=== PATIENT | male | born 1985 | race Caucasian/White ===

== ENCOUNTER 2019-09-17 20:47 | Inpatient (IN) ==
[2019-09-17] MEDS ORDERED: MoRPHine SULFATE 4 MG/ML 1 ML CARP\\VIAL IV STA (21:05)
[2019-09-17] MEDS ORDERED: ONDANSETRON INJ 2 MG/ML 2 ML VIAL IV STA (21:05)
[2019-09-17] MEDS ORDERED: SODIUM CHLORIDE 0.9% 1000ML 1,000 ML IV SCH (21:15)
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
[2019-09-17 21:44] LABS: Hemoglobin 12.7 g/dL (14.0-18.0); Mean Corpuscular Hemoglobin 28.9 pg (25-34); Mean Corpuscular Hgb Conc 33.4 g/dL (32-36); Mean Corpuscular Volume 86.4 fL (80-100); RDW Coefficient of Variation 16.3 % (11.5-14.5); RDW Standard Deviation 51.8 fL (36.4-46.3); White Blood Count 6.18 K/uL (4.8-10.8)
[2019-09-17 21:54] LABS: Albumin Level 4.3 gm/dl (3.4-5.0); BUN Creatinine Ratio 8.7 (10-20); Calcium 9.3 mg/dl (8.5-10.1); Creatinine Clr Calc Pharmacy 103.6 ml/min; Est GFR (African American) 105.3; Est GFR (Non-African American) 90.9; Potassium 3.9 mmol/L (3.5-5.1)
[2019-09-17 21:58] LABS: Albumin Globulin Ratio 1.1 (0.9-2); Bilirubin,Total 1.6 mg/dl (0.2-1); Globulin 4.1 gm/dl (2.5-4.0); Total Protein 8.4 gm/dl (6.4-8.2)
[2019-09-17 22:06] LABS: Basophils # (auto) 0.01 K/uL (0-0.2); Basophils % (auto) 0.2 %; Eosinophils # (auto) 0.02 K/uL (0-0.5); Eosinophils % (auto) 0.3 %; Immature Granulocytes # (auto) 0.01 K/uL (0.00-0.02); Immature Granulocytes % (auto) 0.2 %; Lymphocytes # (auto) 0.56 K/uL (1.2-3.4); Lymphocytes % (auto) 9.1 %; Mean Platelet Volume 10.4 fL (7.4-10.4); Monocytes # (auto) 0.37 K/uL (0.11-0.59); Neutrophils # (auto) 5.21 K/uL (1.4-6.5); Neutrophils % (auto) 84.2 %; Platelet Count 86 K/uL (130-400); Platelet Estimate Decreased (Normal)
[2019-09-17 22:21] LABS: Appearance Urine Clear (Clear); Bacteria Urine Automated Negative (Negative); Blood Urine Negative (Negative); Color Urine Orange; Epithelial Cell Urine Auto 20-30 /lpf (0-5); Glucose Urine UA Negative (Negative); Leukocyte Esterase Urine Trace (Negative); Nitrite Urine Positive (Negative); RBC Urine Automated 0-4 /hpf (0-4); Urobilinogen Urine Negative (Negative); pH Urine 7.5 (4.5-7.5)
--- NOTE | 2019-09-17 22:22 | CT Scan Report ---
ABDOMEN AND PELVIS CT WITHOUT CONTRAST CT DOSE: 347.90 mGy.cm HISTORY: right flank pain TECHNIQUE: Multiaxial CT images of the abdomen and pelvis were performed without contrast. A dose lo wering technique was utilized adhering to the principles of ALARA. COMPARISON STUDY: None. FINDINGS: A few bibasilar linear densities consistent with subsegmental atelectasis. No pneumoperiton eum. No pneumatosis. No fractures within the visualized osseous structures. Hepatic steatosis. The un enhanced gallbladder, spleen, left adrenal gland, and pancreas are unremarkable. Mild bilateral perin ephric edema. No renal or ureteral stones. No hydronephrosis. Bladder wall thickening may be due to u nderdistention. No retroperitoneal lymphadenopathy. Normal caliber abdominal aorta. Suboptimal evalua tion for bowel pathology due to the lack of intravenous and oral contrast. However, there is no defin ite bowel wall thickening or obstruction. Normal appendix. A 9 mm right adrenal gland nodule. IMPRESSION: 1. Normal appendix. 2. No definite bowel wall thickening or obstruction. 3. No renal or ureteral stones. No hydronephrosis. 4. Mild bilateral perinephric edema/fat stranding. This could be due to an underlying renal abnormali ty or less likely a pyelonephritis. Recommend correlation with renal function studies and urinalysis. 5. Bladder wall thickening is likely due to underdistention. Recommend correlation with urinalysis to exclude the possibility of a cystitis. 6. Hepatic steatosis. 7. An indeterminate 9 mm right adrenal gland nodule. Electronically signed by: Thomas Huntley M.D. 09/17/2019 10:20 PM
[2019-09-17 22:25] LABS: Bilirubin Urine 1+ (Negative); Ictotest Urine Positive (Negative); Ketones Urine 3+ (Negative); Protein Urine 2+ (Negative); Sulfosalicylic Acid Urine Positive (Negative)
[2019-09-17] MEDS ORDERED: cefTRIAXone SODIUM 1,000 MG/50 ML BAG IV STA (22:27)
[2019-09-17] MEDS ORDERED: PROMETHAZINE 6.25 MG/50.25 ML BAG IV STA (22:45)
[2019-09-17] MEDS ORDERED: MoRPHine SULFATE 4 MG/ML 1 ML CARP\\VIAL IV PRN (23:25)
[2019-09-18] MEDS ORDERED: HYDROmorphone INJ 0.5 MG/0.5 ML SYR IV PRN (00:05)
[2019-09-18] MEDS ORDERED: ONDANSETRON INJ 2 MG/ML 2 ML VIAL IV PRN (00:05)
[2019-09-18] MEDS ORDERED: ACETAMINOPHEN 325 MG TAB PO PRN (00:05)
[2019-09-18] MEDS ORDERED: KETOROLAC TROMETHAMINE 15 MG/ML VIAL IV PRN (00:05)
[2019-09-18] MEDS ORDERED: FAMOTIDINE 20MG/5ML IV PUSH IV ONE (00:36)
[2019-09-18] MEDS: FAMOTIDINE 20 MG in SYRINGE 3 ML IV SCH ×3 (00:37→22:14)
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
[2019-09-18] MEDS: D5W AND 1/2NSS 1,000 ML IV SCH ×4 (01:10→21:23)
[2019-09-18 05:06] LABS: Hematocrit (blood only) 33.6 % (42-52); Hemoglobin 11.2 g/dL (14.0-18.0); Mean Corpuscular Hemoglobin 29.2 pg (25-34); Mean Corpuscular Hgb Conc 33.3 g/dL (32-36); Mean Corpuscular Volume 87.7 fL (80-100); RDW Coefficient of Variation 16.3 % (11.5-14.5); RDW Standard Deviation 52.6 fL (36.4-46.3); Red Blood Count 3.83 M/uL (4.7-6.1); White Blood Count 4.97 K/uL (4.8-10.8)
[2019-09-18 05:11] LABS: Mean Platelet Volume 9.8 fL (7.4-10.4); Platelet Count 70 K/uL (130-400)
[2019-09-18 05:44] LABS: Albumin Level 3.7 gm/dl (3.4-5.0); Bilirubin Direct 0.4 mg/dl (0-0.2); Calcium 8.6 mg/dl (8.5-10.1); Creatinine Clr Calc Pharmacy 103.6 ml/min; Est GFR (African American) 105.3; Est GFR (Non-African American) 90.9; Potassium 3.6 mmol/L (3.5-5.1)
[2019-09-18 05:46] LABS: Bilirubin,Total 1.4 mg/dl (0.2-1); Globulin 3.7 gm/dl (2.5-4.0); Total Protein 7.4 gm/dl (6.4-8.2)
[2019-09-18] MEDS: KETOROLAC 30 MG/ML VIAL IV PRN ×2 (08:58→14:59)
--- NOTE | 2019-09-18 18:06 | Hospitalist Progress Note ---
Date of Service September 18, 2019 Assessment & Plan (1) Pyelonephritis: Right side Failed outpatient treatment with Cipro Continue IV Rocephin 1 gram Q24 await culture results pain control for right flank pain Antipyretics with Tylenol and/or Toradol (2) Vomiting: advance diet as tolerated Zofran IV Pepcid IV (3) Thrombocytopenia: 70,00 today - likely secondary to pyelonephritis but hepatic steatosis s econdary to alcohol abuse may also be contributing Continue to trend (4) Hepatic steatosis: Patient admits to drinking about 4 beers daily Discussed ramifications of continued alcohol abuse and cessation strategies to which patient was open. Will need to follow with his pcp (5) Adrenal nodule: Seen incidentally on CT follow with pcp (6) Elevated bilirubin: with RUQ pain Nothing acute with gallbladder on CT, will check with gallbladder US (7) DVT prophylaxis: no chemoprophylaxis due to decreased platelets, SCDs Subjective Mr. Witt continues to have pain in his right flank as well as RUQ. He is no longer vomiting ROS Constitutional: no chills, aches, sweats or fever Respiratory: no sob,cough, sputum, or wheezing Cardiac: no chest pain, palpitations, edema, orthopnea or lightheadedness GI: no abdominal pain, nausea, vomiting, diarrhea or constipation : no dysuria or hesitancy Extremities: no joint pain or weakness Skin: no rash All other systems reviewed and negative Physical Exam Physical Exam: General: no distress Eyes: normal inspection, PERLL Respiratory: chest non tender, clear to auscultation, normal breath sounds, no respiratory distress, no accessory muscle use Cardiac: regular rate and rhythm, no rub or gallop, no murmur, no edema, no jvd GI/: active bowel sounds, RUQ tender to palpation soft, non distended Extremities: normal range of motion, normal strength, non tender Neuro/Psych: alert and oriented x 3, normal mood and affect Skin: normal color, dry Results & Data Vital Signs (Past 12 Hours) Vital Signs Temp Pulse Pulse Resp BP Pulse Ox 09/18/19 15:26 37.0 C 60 16 147/76 H 97 09/18/19 11:40 160/70 H 09/18/19 08:02 36.9 C 70 14 160/70 H 96 PG Care Time/CCT Total # of Minutes Spent Total Time Spent with Patient: Total time spent is greater than 50% in coordination of care (as documented) at patient's floor/unit and/or counseling patient: (1) Vomiting Nausea presence: with nausea Vomiting Intractability: intractable Vomiting type: unspecified Qualified Code(s): R11.2 - Nausea with vomiting, unspecified
[2019-09-18] MEDS: HYDROmorphone INJ 1 MG/ML SYRINGE IV PRN (18:50)
[2019-09-18] MEDS: cefTRIAXone SODIUM 1,000 MG in DEXTROSE 5% 50 ML IV SCH (21:30)
--- NOTE | 2019-09-18 22:12 | Ultrasound Report ---
BILIARY ULTRASOUND CLINICAL HISTORY: Right upper quadrant pain and elevated bilirubin. COMPARISON STUDY: Noncontrast CT scan dated 09/17/2019 FINDINGS: The pancreas appears normal as visualized. Liver is of increased echogenicity, nonspecific finding most often seen in hepatic steatosis. There are multiple gallstones. There is no gallbladder wall thickening. There is no ductal dilatation . The common bile duct measures 2 mm. The technologist reports a negative sonographic Le sign. There is no evidence of right-sided hydronephrosis IMPRESSION: 1. Cholelithiasis. No evidence of ductal dilatation 2. Nonspecific increased hepatic echogenicity, consistent with the patient's previously described hep atic steatosis Electronically signed by: Norberto Baez M.D. 09/18/2019 10:11 PM
[2019-09-19] MEDS: HYDROmorphone INJ 1 MG/ML SYRINGE IV PRN (00:33)
[2019-09-19] MEDS: D5W AND 1/2NSS 1,000 ML IV SCH (04:41)
[2019-09-19 06:23] LABS: Hematocrit (blood only) 31.3 % (42-52); Hemoglobin 10.4 g/dL (14.0-18.0); Mean Corpuscular Hemoglobin 28.9 pg (25-34); Mean Corpuscular Hgb Conc 33.2 g/dL (32-36); Mean Corpuscular Volume 86.9 fL (80-100); RDW Coefficient of Variation 15.7 % (11.5-14.5); RDW Standard Deviation 50.1 fL (36.4-46.3); White Blood Count 3.73 K/uL (4.8-10.8)
[2019-09-19 06:26] LABS: Mean Platelet Volume 10.1 fL (7.4-10.4); Platelet Count 63 K/uL (130-400)
[2019-09-19 06:43] LABS: Albumin Level 3.5 gm/dl (3.4-5.0); BUN Creatinine Ratio 5.4 (10-20); Bilirubin Direct 0.3 mg/dl (0-0.2); Calcium 8.7 mg/dl (8.5-10.1); Creatinine Clr Calc Pharmacy 123.6 ml/min; Est GFR (African American) 128.1; Est GFR (Non-African American) 110.5; Potassium 3.4 mmol/L (3.5-5.1)
[2019-09-19 06:57] LABS: Albumin Globulin Ratio 1.1 (0.9-2); Bilirubin,Total 0.7 mg/dl (0.2-1); Globulin 3.1 gm/dl (2.5-4.0); Total Protein 6.6 gm/dl (6.4-8.2)
[2019-09-19] MEDS ORDERED: POTASSIUM CHLORIDE 20 MEQ TABCR PO STA (08:11)
[2019-09-19] MEDS ORDERED: HYDROCODONE/ACETAMOPHEN 5/325MG TAB PO PRN ×2 (08:16→21:56)
[2019-09-19] MEDS: FAMOTIDINE 20 MG in SYRINGE 3 ML IV SCH ×2 (08:31→20:31)
[2019-09-19 09:18] LABS: Estimated Average Glucose 97 mg/dl
--- NOTE | 2019-09-19 10:48 | Ultrasound Report ---
RENAL ULTRASOUND HISTORY: Flank pain. COMPARISON: Abdomen and pelvis CT 09/17/2019. FINDINGS: Right kidney: 10.8 cm. No hydronephrosis. Normal corticomedullary differentiation and cortical thickn ess. Left kidney: 11.1 cm. No hydronephrosis. Normal corticomedullary differentiation and cortical thickne ss. Bladder: Not well-distended. No definite bladder wall thickening. The ureteral jets are not identifie d. Spleen: Normal in size and echotexture. This measures 11 cm in length. IMPRESSION: 1. No hydronephrosis. 2. Normal spleen. Electronically signed by: Thomas Huntley M.D. 09/19/2019 10:46 AM
[2019-09-19 16:03] LABS: Appearance Urine Clear (Clear); Bilirubin Urine Negative (Negative); Blood Urine Negative (Negative); Color Urine Yellow; Glucose Urine UA Negative (Negative); Ketones Urine Negative (Negative); Leukocyte Esterase Urine Negative (Negative); Nitrite Urine Negative (Negative); Protein Urine Negative (Negative); Specific Gravity Urine 1.009 (1.000-1.030); Urobilinogen Urine Negative (Negative); pH Urine 7.5 (4.5-7.5)
[2019-09-19] MEDS ORDERED: LORazepam 0.5 MG TAB PO PRN (16:24)
--- NOTE | 2019-09-19 16:24 | Hospitalist Progress Note ---
Date of Service September 19, 2019 Assessment & Plan (1) Pyelonephritis: Right side Failed outpatient treatment with Cipro Continue IV Rocephin 1 gram Q24 cultures did not appear to be collected on admission so will recollect to check for resolution of infection pain control for right flank pain Antipyretics with Tylenol and/or Toradol (2) Vomiting: advance diet as tolerated - nausea is much improved Zofran IV Pepcid IV (3) Thrombocytopenia: with pancytopenia Platelets continue to trend down 63,000 today - unclear why platelets are continuing to decrease. They were low on admission so I don't believe this is medication induced. It could be secondary to the infection however he did not present with a septic picture or severe infection. US of kidneys and spleen today were unremarkeable No s/s of bleeding (4) Hepatic steatosis: Patient admits to drinking about 4 beers daily Discussed ramifications of continued alcohol abuse and cessation strategies to which patient was open. Will need to follow with his pcp [facility] (5) Adrenal nodule: Seen incidentally on CT follow with pcp (6) Elevated bilirubin: with RUQ pain - no further ruq pain Nothing acute with gallbladder on CT, gallbladder US with cholelithiasis but no cbd dilatation or evidence of cholecystitis (7) DVT prophylaxis: no chemoprophylaxis due to decreased platelets, SCDs Subjective Mr. Witt is feeling better today, pain is improving, switched to po pain medications. No further nausea. ROS Constitutional: no chills, aches, sweats or fever Respiratory: no sob,cough, sputum, or wheezing Cardiac: no chest pain, palpitations, edema, orthopnea or lightheadedness GI: as above : no dysuria or hesitancy Extremities: no joint pain or weakness Skin: no rash All other systems reviewed and negative Physical Exam Physical Exam: General: no distress Eyes: normal inspection, PERLL Respiratory: chest non tender, clear to auscultation, normal breath sounds, no respiratory distress, no accessory muscle use Cardiac: regular rate and rhythm, no rub or gallop, no murmur, no edema, no jvd GI/: active bowel sounds, no abd pain or tenderness, soft, non distended Extremities: normal range of motion, normal strength, non tender Neuro/Psych: alert and oriented x 3, normal mood and affect Skin: normal color, dry Results & Data Vital Signs (Past 12 Hours) Vital Signs Temp Pulse Resp BP BP Pulse Ox 09/19/19 15:11 36.7 C 78 20 181/105 H 100 09/19/19 07:06 36.9 C 58 L 16 130/78 97 PG Care Time/CCT Total # of Minutes Spent Total Time Spent with Patient: Total time spent is greater than 50% in coordination of care (as documented) at patient's floor/unit and/or counseling patient: (1) Vomiting Nausea presence: with nausea Vomiting Intractability: intractable Vomiting type: unspecified Qualified Code(s): R11.2 - Nausea with vomiting, unspecified
[2019-09-19] MEDS: cefTRIAXone SODIUM 1,000 MG in DEXTROSE 5% 50 ML IV SCH (22:22)
[2019-09-20 08:58] LABS: Hematocrit (blood only) 33.3 % (42-52); Hemoglobin 11.2 g/dL (14.0-18.0); Mean Corpuscular Hemoglobin 28.9 pg (25-34); Mean Corpuscular Hgb Conc 33.6 g/dL (32-36); RDW Coefficient of Variation 15.9 % (11.5-14.5); RDW Standard Deviation 49.4 fL (36.4-46.3); Red Blood Count 3.87 M/uL (4.7-6.1); White Blood Count 3.92 K/uL (4.8-10.8)
[2019-09-20] MEDS ORDERED: PANTOprazole 40 MG TAB PO SCH (09:00)
[2019-09-20 09:04] LABS: Mean Platelet Volume 10.8 fL (7.4-10.4); Platelet Count 72 K/uL (130-400)
[2019-09-20 09:22] LABS: Albumin Level 3.8 gm/dl (3.4-5.0); BUN Creatinine Ratio 5.4 (10-20); Calcium 9.4 mg/dl (8.5-10.1); Creatinine Clr Calc Pharmacy 122.2 ml/min; Est GFR (African American) 127.5; Potassium 3.3 mmol/L (3.5-5.1)
[2019-09-20 09:25] LABS: Albumin Globulin Ratio 1.1 (0.9-2); Bilirubin,Total 0.8 mg/dl (0.2-1); Globulin 3.6 gm/dl (2.5-4.0); Total Protein 7.4 gm/dl (6.4-8.2)
[2019-09-20 09:30] LABS: Basophils # (auto) 0.01 K/uL (0-0.2); Basophils % (auto) 0.3 %; Eosinophils # (auto) 0.13 K/uL (0-0.5); Eosinophils % (auto) 3.3 %; Immature Granulocytes # (auto) 0.03 K/uL (0.00-0.02); Immature Granulocytes % (auto) 0.8 %; Lymphocytes % (auto) 25.5 %; Monocytes # (auto) 0.34 K/uL (0.11-0.59); Monocytes % (auto) 8.7 %; Neutrophils # (auto) 2.41 K/uL (1.4-6.5); Neutrophils % (auto) 61.4 %
[2019-09-20] MEDS ORDERED: POTASSIUM CHLORIDE 20 MEQ TABCR PO STA (10:01)
--- NOTE | 2019-09-20 10:43 | Discharge Summary ---
Date of Service September 20, 2019 Admission HPI Per Admitting Provider 34 y/o male with a 4 day history of fever (Tmax 101) right flank pain, N/V was diagnosed with UTI in the ED on 09/17/19 (treated with Cipro). The patient returned due to intractable vomiting,not being able to keep Cipro in system. In addition, the flank pain worsened. He denies chest pain, shortness of breath, hematuria, and pain or swelling in legs. Primary Care Provider: NO PCP Principal Diagnosis Pyelonephritis Discharge Exam Constitutional WD/WN, vitals as above Respiratory normal respiratory effort, lungs clear to auscultation Cardiovascular RRR, no murmur, no edema Gastrointestinal (Abdomen) Inspection/Auscultation: abdomen normal to inspection and normal bowel sounds; abdomen not distended Percussion/Palpation: abdomen soft; abdomen nontender Musculoskeletal no cyanosis or clubbing, extremities motor strength 5/5 Skin no rashes, warm and dry Neurologic moves all extremities and awake Psychiatric A+Ox3, euthymic affect Discharge Data Allergies Allergy/AdvReac Type Severity Reaction Status Date / Time No Known Allergies Allergy Verified 09/17/19 21:14 Consultations 09/17/19 23:33 ED Decision to Admit Stat Ordered Studies 09/17/19 21:05 CT abd pelvis wo con Stat 09/18/19 15:55 US gallbladder Routine 09/19/19 09:26 US renal/blad retro comp Routine Hospital Course (1) Pyelonephritis: Right side Failed outpatient treatment with Cipro Continue IV Rocephin 1 gram Q24 cultures did not appear to be collected on admission - repeat UA was clean after a number of days of abx pain control for right flank pain Antipyretics with Tylenol and/or Toradol (2) Vomiting: No further nausea (3) Thrombocytopenia: with pancytopenia Platelets rebounding today to 72,000 as well as WBCs and hgb - unclear why counts decreased. They were low on admission so I don't believe this is medication induced. Likely secondary to the infection however he did not present with a septic picture or severe infection. US of kidneys and spleen were unremarkeable No s/s of bleeding Will hold off on follow up blood work as he appears to be rebounding - can discuss further follow up with pcp (4) Hepatic steatosis: Patient admits to drinking about 4 beers daily Discussed ramifications of continued alcohol abuse and cessation strategies to which patient was open. Will need to follow with his pcp [facility] (5) Adrenal nodule: Seen incidentally on CT follow with pcp (6) Elevated bilirubin: with RUQ pain - no further ruq pain Nothing acute with gallbladder on CT, gallbladder US with cholelithiasis but no cbd dilatation or evidence of cholecystitis (7) Hypokalemia: replaced Will give patient 1 week of 20 mEq replacement daily while he is eating less than normal (8) DVT prophylaxis: no chemoprophylaxis due to decreased platelets, SCDs Total Time Total Time Spent Total Time Spent (In Minutes): greater than 30 minutes Discharge Plan Discharge Items Patient Disposition: Home - Self-Care Reason For Visit: RIGHT PYELONEPHRITIS Discharge Diagnosis: Kidney infection (pyelonephritis) Activity: Resume your previous activity Activity Comment: gradually as tolerated Non-emergency contact: Primary Care Provider Call non-emergency contact if: you have any medication questions, your symptoms worsen, your pain is not controlled, your pain is worsening and you have a fever Follow-up/Referrals: PCP,NO [Physician] - Diet: Regular Addtl Attending Provider Instructions: 1) Pyelonephritis: You were admitted to the hospital for kidney infection on the right side after failed outpatient treatment with Ciprofloxacin You were given IV Rocephin while inpatient and will continue on cefixime for home for a total of 2 weeks of treatment Please follow up with your primary care provider within about a week. If you have pain you can take up to 3,000 mg of Tylenol per 24 hours (2) Thrombocytopenia (low platelets): with low white blood cells and low hemoglobin, likely due to infection suppressing bone marrow Your blood counts are rebounding today but are not yet normal. Avoid medications like aspirin which inhibit your platelets. Please let your doctor know right away or return to the emergency department if you develop bleeding such as blood in your urine, black, tarry or bloody stools, excessive bruising or petechiae (clusters of little red spots on your skin) Discuss any necessary follow up blood work with your provider at your appointment next week (3) Hepatic steatosis (fatty liver): Discontinue alcohol consumption and discuss with your provider at your next appointment (4) Adrenal nodule: Seen incidentally on CT scan Follow up with your provider, they may want you to have it rescanned in the future to monitor for any change (5) Hypokalemia Your potassium was slightly low over the last two days. Be sure to eat a well rounded diet. I will send a week's worth of potassium replacement to your pharmacy to replace until you are eating a normal diet again. Pending Studies at Discharge: No Stand-Alone Forms: [facility], Work/School Release (Inpt), Smoking Cessation Medications and DC Order Prescriptions: New cefixime 400 mg capsule 400 mg PO DAILY Qty: 10 RF: 0 potassium chloride 20 mEq tablet extended release 20 meq PO DAILY Qty: 7 RF: 0 Continued multivitamin Tablet 1 tab PO DAILY RF: 0 Discontinued ciprofloxacin HCl 500 mg tablet 500 mg PO BID Qty: 14 RF: 0 Discharge Orders: Discharge Order (Routine); Ordered 09/20/19 Ordered By: Dana Sprague Admission Data Admit Date/Time: 09/18/19 00:50 Attending Provider: Dawood Montelongo Admit Provider: Deric Peter Primary Care Provider: [facility],Medicine Other Providers: Deric Peter
== END 2019-09-20 12:10 | disposition home or self-care (01) | DRG 690 ==
LOC: ED 20:47 → 3N 09-18 00:45 → SUATTDRO 09-18 00:50 → 3N 09-18 00:50

== ENCOUNTER 2025-06-22 09:28 | Inpatient (IN) ==
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
[2025-06-22] MEDS: SODIUM CHLORIDE 0.9% 1,000 ML IV SCH (09:56)
[2025-06-22] MEDS: LORazepam 1 MG/1 ML SYR ED Inj Use IV STA (09:56)
[2025-06-22] MEDS: diphenhydrAMINE 50 MG/ML VIAL IV STA (09:57)
[2025-06-22 10:02] LABS: Hematocrit (blood only) 43.8 % (42.0-52.0); Hemoglobin 15.5 g/dl (14.0-18.0); Immature Granulocytes # (auto) 0.01 K/uL (0.01-0.20); Immature Granulocytes % (auto) 0.2 %; Mean Corpuscular Hemoglobin 31.4 pg (25.0-34.0); Mean Corpuscular Volume 88.8 fL (80.0-100.0); Platelet Count 108 K/uL (130-400); RDW Standard Deviation 43.3 fL (36.4-46.3); Red Blood Count 4.93 M/uL (4.70-6.10); White Blood Count 4.07 K/ul (4.8-10.8)
[2025-06-22 10:21] LABS: Alanine Aminotransferase 26.0 U/L (7-52); Albumin Globulin Ratio 1.4 (0.9-2); Alkaline Phosphatase 89.0 U/L (34-104); Anion Gap 10.0 (3-11); Bilirubin,Total 0.5 mg/dl (0.2-1.0); Blood Urea Nitrogen 4.0 mg/dl (6-23); Calcium 8.8 mg/dl (8.6-10.3); Carbon Dioxide 33.0 mmol/L (21-32); Chloride 99.0 mmol/L (98-107); Creatine Kinase 295.0 U/L (30-223); Creatinine Clr Calc Pharmacy 118.7 ml/min; Globulin 3.3 gm/dl (2.5-4.0); Glucose 118.0 mg/dl (70-99(Fasting)); Magnesium 2.0 mg/dl (1.7-2.4); Potassium 3.5 mmol/L (3.5-5.1); Sodium 142.0 mmol/L (136-145); Total Protein 8.0 gm/dl (6.0-8.3)
[2025-06-22 10:28] LABS: Base Excess VBG 6.8 mEq/L; HCO3 VBG 34 mmol/L; Oxygen Saturation VBG < 60.0 %; PCO2 VBG 57 mmHg (38-50); PO2 VBG 36 mmHg
[2025-06-22 10:30] LABS: pH VBG 7.39 (7.36-7.41)
--- NOTE | 2025-06-22 10:32 | CT Scan Report ---
CT head/brain wo con CLINICAL HISTORY: altered, poss trauma. TECHNIQUE: Multiple axial CT images of the head were obtained without contrast. A dose lowering tech nique was utilized adhering to the principles of ALARA. COMPARISON: None FINDINGS: There is motion artifact despite multiple acquisitions. No intracranial hemorrhage seen. No mass effect, midline shift, or hydrocephalus. No skull fracture seen. There is mucosal thickening in the maxillary sinuses. There is a mucous retention cyst at the right maxillary sinus. IMPRESSION: No acute findings. ACT 112: Negative or not required by law. The above report was generated using voice recognition software. It may contain grammatical, syntax o r spelling errors. Electronically signed by: Beto Trotter M.D. 06/22/2025 10:31 AM
[2025-06-22 10:33] LABS: INR 1.1 (0.9-1.1); Partial Thromboplastin Time 30 Seconds (21-31); Prothrombin Time 11.4 Seconds (9.0-12.0)
[2025-06-22 10:35] LABS: Thyroid Stimulating Hormone 0.916 uIu/ml (0.300-4.500)
--- NOTE | 2025-06-22 10:39 | CT Scan Report ---
CT SCAN OF THE CERVICAL SPINE CLINICAL HISTORY: Possible fall. Altered mental status. COMPARISON STUDY: None. TECHNIQUE: CT scan of the cervical spine is performed from the skull base to the upper thoracic spine . Images are reviewed in the axial, sagittal, and coronal planes. IV contrast was not administered fo r this examination. A dose lowering technique was utilized adhering to the principles of ALARA. CT DOSE: 2418.7 mGy.cm FINDINGS: There is mild leftward curvature of the cervical spine. This may be positional. No cervical spine fractures are present. There are no osseous lesions. There is mild multilevel disc space narro wing and endplate osteophytosis within the cervical spine. There is moderate multilevel facet arthros is. Craniocervical junction is intact. There is no prevertebral edema. IMPRESSION: No acute cervical spine fracture or subluxation. ACT 112: Negative or not required by law. Electronically signed by: Vishal Tinoco M.D. 06/22/2025 10:37 AM
--- NOTE | 2025-06-22 11:00 | XRay Report ---
XR hand LT min 3V routine CLINICAL HISTORY: att small finger especially COMPARISON: None FINDINGS: Fifth finger is held in flexion on all images. Evaluation of the fingers is limited due to overlap on the lateral view. No acute fracture or dislocation seen. No radiopaque foreign body. No s ignificant degenerative change. There is a small chronic calcification adjacent to the distal lateral aspect of the scaphoid, likely sequela of old injury. IMPRESSION: 1. Mildly limited exam with no acute fracture seen. 2. Suggest clinical correlation for contracture at the fifth finger. ACT 112: Negative or not required by law. Electronically signed by: Beto Trotter M.D. 06/22/2025 10:58 AM
--- NOTE | 2025-06-22 11:01 | XRay Report ---
XR chest 1V portable CLINICAL HISTORY: weakness COMPARISON STUDY: 09/17/2019 FINDINGS: Heart size and pulmonary vasculature are normal. No consolidation or pleural effusion seen. No pneumothorax. IMPRESSION: No acute findings. ACT 112: Negative or not required by law. Electronically signed by: Beto Trotter M.D. 06/22/2025 10:59 AM
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
[2025-06-22] MEDS: FOLIC ACID 1 MG in SYRINGE 9.8 ML IV STA (11:50)
[2025-06-22] MEDS: THIAMINE HCL 500 MG in SODIUM CHLORIDE 0.9% 50 ML IV STA (11:51)
[2025-06-22 12:24] LABS: Influenza A virus by PCR Negative (Neg); Influenza B virus by PCR Negative (Neg); SARS CoV2 RNA(COVID-19) Ceph NEGATIVE (Negative)
[2025-06-22 12:47] LABS: Base Excess VBG 7.0 mEq/L; HCO3 VBG 35 mmol/L; Oxygen Saturation VBG < 60.0 %; PCO2 VBG 63 mmHg (38-50); PO2 VBG 40 mmHg; pH VBG 7.35 (7.36-7.41)
--- NOTE | 2025-06-22 12:53 | CT Scan Report ---
CT lumbar spine wo con CLINICAL HISTORY: fall, low lumbar pain COMPARISON STUDY: None FINDINGS: There are minimal lumbar spine degenerative changes. No fracture or subluxation seen. No si gnificant center canal or neural foraminal narrowing. Partially visualized urinary bladder is promine ntly distended. IMPRESSION: 1. No lumbar spine fracture seen. 2. Distended urinary bladder. ACT 112: Negative or not required by law. Electronically signed by: Beto Trotter M.D. 06/22/2025 12:51 PM
[2025-06-22] MEDS: FAMOTIDINE 20MG IV PUSH 20 MG/5 ML SYR IV STA (14:13)
[2025-06-22] MEDS ORDERED: LORazepam 1 MG TAB PO PRN (14:33)
[2025-06-22] MEDS ORDERED: ACETAMINOPHEN 325 MG TAB PO PRN (14:33)
[2025-06-22] MEDS: NSS + 20MEQ KCL 20 MEQ/1,000 ML BAG IV SCH (14:37)
[2025-06-22] MEDS: THIAMINE HCL 500 MG in SODIUM CHLORIDE 0.9% 50 ML IV SCH (19:39)
[2025-06-23] MEDS: FAMOTIDINE 20MG IV PUSH 20 MG/5 ML SYR IV SCH (02:26)
[2025-06-23 02:36] LABS: Appearance Urine Clear (Clear); Glucose Urine UA Negative (Negative)
[2025-06-23 03:04] LABS: Amphetamines+Metham, Urine Neg (Neg); MDMA (Ecstacy), Urine Neg (Neg); Marijuana, Urine Neg (Neg)
[2025-06-23] MEDS: ONDANSETRON INJ 2 MG/ML 2 ML VIAL IV PRN (04:59)
--- NOTE | 2025-06-23 05:36 | Electrocardiogram Report ---
Test Reason : Blood Pressure : */* mmHG Vent. Rate : 74 BPM Atrial Rate : 74 BPM P-R Int : 180 ms QRS Dur : 88 ms QT Int : 390 ms P-R-T Axes : 58 -8 35 degrees QTcB Int : 432 ms Normal sinus rhythm Cannot rule out Anterior infarct , age undetermined Abnormal ECG When compared with ECG of 09-Aug-2005 19:25, Questionable change in QRS axis Confirmed by Earnest Chen ([id number]) on 06/23/2025 5:36:03 AM Referred By: Confirmed By: Earnest Chen
[2025-06-23 06:53] LABS: Hematocrit (blood only) 36.6 % (42.0-52.0); Hemoglobin 12.8 g/dl (14.0-18.0); Mean Corpuscular Hemoglobin 32.0 pg (25.0-34.0); Mean Corpuscular Volume 91.5 fL (80.0-100.0); Platelet Count 91 K/uL (130-400); RDW Standard Deviation 45.0 fL (36.4-46.3); Red Blood Count 4.00 M/uL (4.70-6.10); White Blood Count 4.43 K/ul (4.8-10.8)
[2025-06-23 06:58] LABS: Anion Gap 11.0 (3-11); Blood Urea Nitrogen 5.0 mg/dl (6-23); Calcium 7.7 mg/dl (8.6-10.3); Carbon Dioxide 26.0 mmol/L (21-32); Chloride 106.0 mmol/L (98-107); Creatine Kinase 288.0 U/L (30-223); Creatinine Clr Calc Pharmacy 117.4 ml/min; Glucose 93.0 mg/dl (70-99(Fasting)); Potassium 4.2 mmol/L (3.5-5.1); Sodium 143.0 mmol/L (136-145)
[2025-06-23] MEDS: MULTIVITAMIN TAB PO SCH (08:39)
[2025-06-23] MEDS: FOLIC ACID 1 MG in SYRINGE 9.8 ML IV SCH (08:41)
[2025-06-23] MEDS ORDERED: LORazepam 1 MG TAB PO PRN (15:39)
[2025-06-23] MEDS ORDERED: GABAPENTIN 1200MG ALCOHOL WITHDRAWAL LOAD PO STA (15:39)
[2025-06-23] MEDS ORDERED: Ativan PO Alcohol Withdrawal--Active Protocol PO PRN (15:39)
[2025-06-23] MEDS: GABAPENTIN 600 MG TAB PO ONE (16:05)
[2025-06-23] MEDS: LORazepam 1 MG TAB PO PRN (16:05)
[2025-06-23] MEDS: MUPIROCIN 2% OINT 22 GM TUBE EXT SCH (16:05)
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
[2025-06-23] MEDS: GABAPENTIN 600 MG TAB PO SCH (21:11)
[2025-06-23] MEDS: AZELASTINE HCL 0.1% NASAL 200 SPRAYS/27,400 MCG BTL SCH (22:00)
[2025-06-24 06:57] LABS: Hematocrit (blood only) 36.4 % (42.0-52.0); Hemoglobin 12.8 g/dl (14.0-18.0); Mean Corpuscular Hemoglobin 32.2 pg (25.0-34.0); Mean Corpuscular Volume 91.5 fL (80.0-100.0); Platelet Count 79 K/uL (130-400); RDW Standard Deviation 42.5 fL (36.4-46.3); Red Blood Count 3.98 M/uL (4.70-6.10); White Blood Count 3.45 K/ul (4.8-10.8)
[2025-06-24 07:34] LABS: Anion Gap 6.0 (3-11); Blood Urea Nitrogen 4.0 mg/dl (6-23); Calcium 8.7 mg/dl (8.6-10.3); Carbon Dioxide 29.0 mmol/L (21-32); Chloride 103.0 mmol/L (98-107); Creatinine Clr Calc Pharmacy 113.6 ml/min; Glucose 124.0 mg/dl (70-99(Fasting)); Potassium 4.0 mmol/L (3.5-5.1); Sodium 138.0 mmol/L (136-145)
[2025-06-24] MEDS: CYANOCOBALAMIN (B-12) 500 MCG TABLET PO SCH (08:36)
[2025-06-24] MEDS: LORazepam 1 MG TAB PO PRN (08:47)
--- NOTE | 2025-06-24 09:08 | XRay Report ---
XR wrist RT 2V, XR hand RT 2V CLINICAL HISTORY: recent fall, right hand/wrist swelling; r/o Fx COMPARISON: None FINDINGS: No fracture or dislocation seen at the right wrist or right hand. IMPRESSION: No fracture seen. ACT 112: Negative or not required by law. Electronically signed by: Beto Trotter M.D. 06/24/2025 9:07 AM
[2025-06-24] MEDS: GABAPENTIN 600 MG TAB PO SCH (11:29)
--- NOTE | 2025-06-24 19:40 | Hospitalist Progress Note ---
Date of Service June 24, 2025 Assessment & Plan (1) Alcohol withdrawal: (2) Alcohol intoxication: (3) Altered mental status: (4) Alcohol abuse: (5) Snuff user: (6) Hepatic steatosis: (7) Elevated CPK: (8) Elevated LFTs: (9) Thrombocytopenia: (10) History of tracheostomy: (11) Lumbar back pain: (12) Acute head trauma: (13) Multiple abrasions: (14) Pancytopenia: Plan 40yo male with history of alcohol abuse & tobacco use presented with altered mental status & severe alcohol intoxication (etoh level >500) with resulting lactic acidosis. #alcohol intoxication - present on admission; now with etoh withdrawal - -fortunately no DTs at this time -cont gabapentin taper/protocol -ativan prn for withdrawal symptoms per AWSS protocol -cont: -IV thiamine 500mg q8h -IV folic acid 1mg daily -MVI daily -B12 level low-normal - cont B12 1000mcg daily #etoh abuse - -discussed naltrexone, pros & cons, etc. -patient considering such #altered mental status / toxic encephalopathy - resolved - -2nd to etoh intoxication -mental status has returned to baseline -CT head neg for acute process -IV thiamine #tobacco abuse - -daily snuff outside the hospital #lactic acidosis - resolved - -2nd to dehydration and alcohol intoxication -no infectious process found #leukopenia/thrombocytopenia/mild anemia - c/w PANCYTOPENIA - -likely 2nd to etoh abuse with bone marrow suppression -could have early cirrhosis -B12 level low-normal --> supplement -cont supplemental folic acid -TSH level is wnl -checked COVID/flu/RSV -- all negative -check abdominal u/s - r/o cirrhosis #minimally elevated CPK - -the patient denies any fall or altercation but clearly he had some form of trauma with resulting scrapes, abrasions, and slight laceration above right eye -latter does not require repair -can stop fluids later today -repeat CPK in am #elevated AST - -either 2nd to minimal elevation in CPK or 2nd to alcohol abuse -stable -recheck AST am #lumbar back pain - -checked lumbar spine CT - NO acute fracture #abrasions face/hands - -just had Td booster in [place] about 1 month ago -bactroban ointment to cuts/abrasions on face TID #right hand swelling - -obtained x-rays of R hand and R wrist - NO fracture #nausea/dyspepsia - improved today - -likely gastritis from etoh abuse vs symptom of his etoh withdrawal or combin ation -cont PPI -zofran prn PT eval completed; can return home after etoh withdrawal has been completed Admission and Anticipated Discharge Date Admission Date: June 22, 2025 Subjective tele overnight wnl overall feeling better appetite improved; no nausea today still shaky/tremors, and unsteady on feet right hand swelling & neck discomfort improved Review of Systems Review of Systems: pulm - no dyspnea or MOONEY CV - no chest pain pulm - no cough ENT - astelin helping w/ congestion Physical Exam Physical Exam: gen - looks good today, NAD; tremors of arms head - multiple scrapes and small superficial laceration above right eye; large scrape across bridge of nose HENT - MMM neck - no JVD heart - RRR, s1 s2, no murmur lungs - CTA b/l abd - soft, ND, BS+, NT ext - pulses b/l feet 2+, no edema musculo - right hand gross swelling resolved psych - a/o x 3 Results & Data Results & Data Vital Signs (Past 12 Hours) Vital Signs Temp Pulse Resp BP Pulse Ox O2 Del Method 06/24/25 16:00 36.6 C 77 18 148/76 H 96 Room Air 06/24/25 11:00 36.7 C 63 16 155/82 H 98 Room Air 06/24/25 08:00 36.7 C 60 18 159/88 H 96 Room Air Laboratory Results Laboratory Results - last 24 hr 06/24/25 05:52 WBC 3.45 L RBC 3.98 L Hgb 12.8 L Hct 36.4 L MCV 91.5 MCH 32.2 MCHC 35.2 RDW Std Deviation 42.5 RDW Coeff of Andre 12.9 Plt Count 79 L MPV 10.1 Sodium 138 Potassium 4.0 Chloride 103 Carbon Dioxide 29 Anion Gap 6 BUN 4 L Creatinine 0.93 Est Cr Clr Drug Dosing 113.6 eGFR 105.14 BUN/Creatinine Ratio 4.3 L Glucose 124 H Calcium 8.7 PG Care Time/CCT Total # of Minutes Spent Total Time Spent with Patient: Total time spent is greater than 50% in coordination of care (as documented) at patient's floor/unit and/or counseling patient: Coding Level of Care Code 99421 SUB INP/OBS CARE 2/35MIN Diagnoses Alcohol withdrawal F10.939 Alcohol intoxication F10.929 Altered mental status R40.1 Altered mental status type: stupor Alcohol abuse F10.10 Snuff user Z72.0 Hepatic steatosis K76.0 Elevated CPK R74.8 Elevated LFTs R79.89 Thrombocytopenia D69.6 History of tracheostomy Z98.890 Lumbar back pain M54.50 Acute head trauma S09.90XA Encounter type: initial encounter Multiple abrasions T07.XXXA Pancytopenia D61.818 (3) Altered mental status Altered mental status type: stupor Qualified Code(s): R40.1 - Stupor (12) Acute head trauma Encounter type: initial encounter Qualified Code(s): S09.90XA - Unspecified injury of head, initial encounter
[2025-06-25 06:16] LABS: Hematocrit (blood only) 38.3 % (42.0-52.0); Hemoglobin 12.9 g/dl (14.0-18.0); Mean Corpuscular Hemoglobin 30.6 pg (25.0-34.0); Mean Corpuscular Volume 91.0 fL (80.0-100.0); Platelet Count 92 K/uL (130-400); RDW Standard Deviation 43.1 fL (36.4-46.3); Red Blood Count 4.21 M/uL (4.70-6.10); White Blood Count 4.64 K/ul (4.8-10.8)
[2025-06-25 06:31] LABS: Anion Gap 6.0 (3-11); Blood Urea Nitrogen 5.0 mg/dl (6-23); Calcium 9.4 mg/dl (8.6-10.3); Carbon Dioxide 30.0 mmol/L (21-32); Chloride 102.0 mmol/L (98-107); Creatine Kinase 173.0 U/L (30-223); Creatinine Clr Calc Pharmacy 105.6 ml/min; Glucose 108.0 mg/dl (70-99(Fasting)); Potassium 3.7 mmol/L (3.5-5.1); Sodium 138.0 mmol/L (136-145)
--- NOTE | 2025-06-25 07:47 | Ultrasound Report ---
EXAM: US abdomen complete CLINICAL HISTORY: ?cirrhosis TECHNIQUE: Real-time grayscale and Doppler ultrasound imaging of the abdomen was performed. COMPARISON: 09/17/2019 CT FINDINGS: Liver: Liver size is 15.6 cm and shows bright/Heterogenous parenchymal echogenicity. No focal lesions, cysts, or masses were identified. No intrahepatic bile duct dilatation. Normal flow in the main portal vein. Gallbladder and Biliary System: Gallbladder: Is contracted/minimally distended and shows a 1.2 cm stone. No sludge seen. [Gallbladder wall thickness is normal and measures 1.1 mm] Common bile duct: CBD with normal diameter [3.2 mm] with no dilatation. Pancreas: Echotexture: Partially visualized due to overlying gases and appears normal. Pancreatic duct: Normal size, no dilatation Spleen: Size: Measures 11.9 cm. Echotexture: Normal No focal lesions or masses were identified. Kidneys: Right kidney: Measures 10.5 X5.7X 5.6 cm and shows normal corticomedullary differentiation. Right kidney shows small 6 mm thin-walled unilocular lower pole medullary cyst. Small 1.5 X1.5X 1.3 cm hypoechoic lesion seen in the right adrenal gland. Left kidney: Measures 10.9 X6.2X 5.2 cm and shows normal corticomedullary differentiation. No renal cyst seen. No hydronephrosis, calculi,were identified. Renal parenchymal echogenicity is normal. Cortical thickness: Normal. Aorta: Limited visualized due to overlying bowel gases distal portion appears normal/within normal limits. Other Findings: No free fluid in the abdomen. No lymphadenopathy was noted. IMPRESSION: 1. Normal-sized liver 15.6 cm and shows heterogenous parenchymal echotexture. Chronic liver parenchymal disease. Suggest clinical correlation. 2. Cholelithiasis. 3. Right adrenal nodule/adrenal simple cyst. 4. Right renal medullary simple cyst. 5. Comparing the previous CT dated 09/17/2019 there is marginally increase in the size of right adrenal hypoechoic nodule, otherwise interval stable Clinical correlation is recommended for further evaluation Electronically signed by Humble Santos 06-25-2025 07:47 AM
[2025-06-25] MEDS: NICOTINE 14 MG/24 HR PATCH TD SCH (09:14)
[2025-06-25] MEDS: GABAPENTIN 600 MG TAB PO SCH (15:34)
--- NOTE | 2025-06-25 20:01 | Hospitalist Progress Note ---
Date of Service June 25, 2025 Assessment & Plan (1) Alcohol withdrawal: (2) Alcohol intoxication: (3) Altered mental status: (4) Alcohol abuse: (5) Snuff user: (6) Hepatic steatosis: (7) Elevated CPK: (8) Elevated LFTs: (9) Thrombocytopenia: (10) History of tracheostomy: (11) Lumbar back pain: (12) Acute head trauma: (13) Multiple abrasions: (14) Pancytopenia: Plan 40yo male with history of alcohol abuse & tobacco use presented with altered mental status & severe alcohol intoxication (etoh level >500) with resulting lactic acidosis. This was followed by development of etoh withdrawal. #alcohol intoxication - present on admission; now with etoh withdrawal - -fortunately no DTs -cont gabapentin taper/protocol -ativan prn for withdrawal symptoms per AWSS protocol but requiring minimal amounts -cont: -IV thiamine 500mg q8h -IV folic acid 1mg daily -MVI daily -B12 level low-normal - cont B12 1000mcg daily #etoh abuse - -discussed naltrexone, pros & cons, etc. -patient considering such -gave informational handout on naltrexone #altered mental status / toxic encephalopathy - resolved - -2nd to etoh intoxication -mental status has returned to baseline -CT head neg for acute process -IV thiamine #tobacco abuse - -daily snuff outside the hospital #lactic acidosis - resolved - -2nd to dehydration and alcohol intoxication -no infectious process found #leukopenia/thrombocytopenia/mild anemia - c/w PANCYTOPENIA - -likely 2nd to etoh abuse with bone marrow suppression -abd u/s today without cirrhosis or splenomegaly -significant fatty liver seen, however -counseled patient on risks of progression to cirrhosis with ongoing etoh abuse -B12 level low-normal --> supplement -cont supplemental folic acid -TSH level is wnl -checked COVID/flu/RSV -- all negative #minimally elevated CPK - -the patient denies any fall or altercation but clearly he had some form of trauma with resulting scrapes, abrasions, and slight laceration above right eye -latter did not require repair -repeat CPK has normalized #elevated AST - -either 2nd to minimal elevation in CPK or 2nd to alcohol abuse -recheck of AST today now normal #lumbar back pain - -checked lumbar spine CT - NO acute fracture #abrasions face/hands - -just had Td booster in [place] about 1 month ago -bactroban ointment to cuts/abrasions on face TID #right hand swelling - -obtained x-rays of R hand and R wrist - NO fracture #nausea/dyspepsia - improved/resolved with PPI - -likely gastritis from etoh abuse vs symptom of his etoh withdrawal or combination -cont PPI -zofran prn PT eval completed; can return home after etoh withdrawal has been completed he plans to be discharged, then head to [place] bus [place] to bus back to [place] which is where his permanent residence is Admission and Anticipated Discharge Date Admission Date: June 22, 2025 Subjective tele overnight wnl still feels unsteady and a little weak on his feet minimal tremors eating well no abd pain or nausea no new complaints Review of Systems Review of Systems: cv - no cp pulm - no dyspnea or MOONEY GI - no diarrhea, nausea, emesis, abd pain Physical Exam Physical Exam: gen - looks well, NAD; scant tremors of arms head - multiple scrapes and small superficial laceration above right eye - improved; large scrape across bridge of nose HENT - MMM neck - no JVD heart - RRR, s1 s2, no murmur lungs - CTA b/l abd - soft, ND, BS+, NT ext - pulses b/l feet 2+, no edema psych - a/o x 3; no DTs neuro - scant tremors of arms Results & Data Results & Data Vital Signs (Past 12 Hours) Vital Signs Temp Pulse Pulse Resp BP Pulse Ox O2 Del Method 06/25/25 16:00 36.7 C 65 78 18 147/84 H 98 Room Air 06/25/25 11:00 36.6 C 68 18 144/74 H 96 Room Air 06/25/25 08:15 36.6 C 62 16 151/79 H 97 Room Air Laboratory Results Laboratory Results - last 24 hr 06/25/25 05:40 WBC 4.64 L RBC 4.21 L Hgb 12.9 L Hct 38.3 L MCV 91.0 MCH 30.6 MCHC 33.7 RDW Std Deviation 43.1 RDW Coeff of Andre 13.2 Plt Count 92 L MPV 10.2 Sodium 138 Potassium 3.7 Chloride 102 Carbon Dioxide 30 Anion Gap 6 BUN 5 L Creatinine 1.00 Est Cr Clr Drug Dosing 105.6 eGFR 96.37 BUN/Creatinine Ratio 5.0 L Glucose 108 H Calcium 9.4 AST 32 Total Creatine Kinase 173 PG Care Time/CCT Total # of Minutes Spent Total Time Spent with Patient: Total time spent is greater than 50% in coordination of care (as documented) at patient's floor/unit and/or counseling patient: Coding Level of Care Code 34739 SUB INP/OBS CARE 2/35MIN Diagnoses Alcohol withdrawal F10.939 Alcohol intoxication F10.929 Altered mental status R40.1 Altered mental status type: stupor Alcohol abuse F10.10 Snuff user Z72.0 Hepatic steatosis K76.0 Elevated CPK R74.8 Elevated LFTs R79.89 Thrombocytopenia D69.6 History of tracheostomy Z98.890 Lumbar back pain M54.50 Acute head trauma S09.90XA Encounter type: initial encounter Multiple abrasions T07.XXXA Pancytopenia D61.818 (3) Altered mental status Altered mental status type: stupor Qualified Code(s): R40.1 - Stupor (12) Acute head trauma Encounter type: initial encounter Qualified Code(s): S09.90XA - Unspecified injury of head, initial encounter
[2025-06-26] MEDS: REMOVE NICODERM PATCH SCH (08:50)
[2025-06-26] MEDS: FOLIC ACID 1 MG TAB PO SCH (08:51)
[2025-06-26 11:31] VITALS: RESP 18
--- NOTE | 2025-06-26 20:50 | Hospitalist Progress Note ---
Date of Service June 26, 2025 Assessment & Plan (1) Alcohol withdrawal: (2) Alcohol intoxication: (3) Altered mental status: (4) Alcohol abuse: (5) Snuff user: (6) Hepatic steatosis: (7) Elevated CPK: (8) Elevated LFTs: (9) Thrombocytopenia: (10) History of tracheostomy: (11) Lumbar back pain: (12) Acute head trauma: (13) Multiple abrasions: (14) Pancytopenia: Plan 40yo male with history of alcohol abuse & tobacco use presented with altered mental status & severe alcohol intoxication (etoh level >500) with resulting lactic acidosis. This was followed by development of etoh withdrawal. #alcohol intoxication - present on admission; now with etoh withdrawal - -fortunately no DTs -cont gabapentin taper/protocol - taper will finish tomorrow -ativan prn for withdrawal symptoms per AWSS protocol but has required minimal amounts while here; no ativan in over 24 hours -cont thiamine, folic acid, and MVI; would give each at d/c -B12 level low-normal - cont B12 1000mcg daily; will advise B12 supplementation after discharge as well #etoh abuse - -discussed naltrexone, pros & cons, etc. -patient considering such -gave informational handout on naltrexone -he doesn't want to start now but will f/u with his PCP in [place] for this #altered mental status / toxic encephalopathy - resolved - -2nd to etoh intoxication -mental status has returned to baseline -CT head neg for acute process -s/p IV thiamine; now over to PO thiamine #tobacco abuse - -daily snuff outside the hospital #lactic acidosis - resolved - -2nd to dehydration and alcohol intoxication at time of admission -no infectious process found #leukopenia/thrombocytopenia/mild anemia - c/w PANCYTOPENIA - -likely 2nd to etoh abuse with bone marrow suppression -abd u/s without cirrhosis or splenomegaly -significant fatty liver seen, however -counseled patient on risks of progression to cirrhosis with ongoing etoh abuse -B12 level low-normal --> supplement -cont supplemental folic acid -TSH level is wnl -checked COVID/flu/RSV -- all negative #minimally elevated CPK - -the patient denies any fall or altercation but clearly he had some form of trauma with resulting scrapes, abrasions, and slight laceration above right eye -latter did not require repair -repeat CPK has normalized #elevated AST - -either 2nd to minimal elevation in CPK or 2nd to alcohol abuse -recheck of AST now normal #lumbar back pain - -checked lumbar spine CT - NO acute fracture #abrasions face/hands - -just had Td booster in [place] about 1 month ago -bactroban ointment to cuts/abrasions on face TID #right hand swelling - -obtained x-rays of R hand and R wrist - NO fracture #nausea/dyspepsia - improved/resolved with PPI - -likely gastritis from etoh abuse vs symptom of his etoh withdrawal or combination -cont PPI -zofran prn -would prescribe PPI at discharge PT eval completed; can return home after etoh withdrawal has been completed he plans to be discharged, then head by bus back to [place] which is where his permanent residence is will have PT see him 1 more time in AM tomorrow to make sure walking is steady if he does well will discharge him at that time Admission and Anticipated Discharge Date Admission Date: June 22, 2025 Subjective no events overnight eating well tremors resolved still a little unsteady on his feet he asks if he thinks he will be d/c tomorrow because he is trying to secure a seat on a bus that will take him back to [place] there is a bus that [place] from the airport at 430pm tomorrow tele overnight wnl Review of Systems Review of Systems: gen - feeling better eyes - mild nystagmus cv - no cp pulm - no dyspnea GI - no N/V Physical Exam Physical Exam: gen - looks well, NAD head - multiple scrapes and small superficial laceration above right eye - improved; large scrape across bridge of nose HENT - MMM eyes - horizontal nystagmus present neck - no JVD heart - RRR, s1 s2, no murmur lungs - CTA b/l abd - soft, ND, BS+, NT ext - pulses b/l feet 2+, no edema psych - a/o x 3; no DTs neuro - no tremors of arms today Results & Data Results & Data Vital Signs (Past 12 Hours) Vital Signs Temp Pulse Pulse Resp BP Pulse Ox O2 Del Method 06/26/25 19:41 36.8 C 75 18 133/84 97 Room Air 06/26/25 16:03 36.7 C 80 18 154/95 H 100 Room Air 06/26/25 15:36 100 H 06/26/25 11:30 36.7 C 83 18 147/90 H 99 Room Air PG Care Time/CCT Total # of Minutes Spent Total Time Spent with Patient: Total time spent is greater than 50% in coordination of care (as documented) at patient's floor/unit and/or counseling patient: Coding Level of Care Code 25934 SUB INP/OBS CARE 2/35MIN Diagnoses Alcohol withdrawal F10.939 Alcohol intoxication F10.929 Altered mental status R40.1 Altered mental status type: stupor Alcohol abuse F10.10 Snuff user Z72.0 Hepatic steatosis K76.0 Elevated CPK R74.8 Elevated LFTs R79.89 Thrombocytopenia D69.6 History of tracheostomy Z98.890 Lumbar back pain M54.50 Acute head trauma S09.90XA Encounter type: initial encounter Multiple abrasions T07.XXXA Pancytopenia D61.818 (3) Altered mental status Altered mental status type: stupor Qualified Code(s): R40.1 - Stupor (12) Acute head trauma Encounter type: initial encounter Qualified Code(s): S09.90XA - Unspecified injury of head, initial encounter
[2025-06-26] MEDS: THIAMINE HCL 100 MG TAB PO SCH (21:40)
[2025-06-27] MEDS: GABAPENTIN 600 MG TAB PO SCH (04:13)
[2025-06-27 08:26] VITALS: BP 128/87; TEMP 97.5; O2SAT 96
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
[2025-06-27 11:19] VITALS: PULSE 81
== END 2025-06-27 11:37 | disposition home or self-care (01) | DRG 896 ==
LOC: ED 09:28 → 2S 13:52 → SUATTDRO 13:52 → 2S 14:48